=== PATIENT | male | born 1945 | race Caucasian/White ===

== ENCOUNTER → 2017-09-03 12:19 | Outpatient (CLI) | payer MEDICARE, OTHER | END | disposition home or self-care (01) | LOC: D.MRI 12:19 | DX: M54.42 Lumbago with sciatica, left side (principal); J44.9 Chronic obstructive pulmonary disease, unspecified ==

== ENCOUNTER → 2017-09-11 12:54 | Outpatient (CLI) | payer MEDICARE, OTHER | END | disposition home or self-care (01) | LOC: D.MRI 09-03 13:00 | DX: J44.9 Chronic obstructive pulmonary disease, unspecified (principal); M54.42 Lumbago with sciatica, left side ==